=== PATIENT | female | born 1995 | race Caucasian/White ===

== ENCOUNTER → 2016-09-04 07:36 | Outpatient (CLI) | payer BC | LOC: D.MRI 07:36 | DX: K83.1 Obstruction of bile duct (principal) ==

== ENCOUNTER → 2020-01-05 16:09 | Outpatient (CLI) | payer OTHER ==
[2020-01-05 16:30] LABS: BASOPHILS 0.3 % (0-2); EOSINOPHILS 0.9 % (0-7); HEMATOCRIT 38.7 % (36.0-48.0); HEMOGLOBIN 13.3 g/dL (12-16); IMMATURE GRANULOCYTES 0.1 % (0-5); MCH 31.1 pg (26.0-34.0); MCHC 34.4 g/dL (31.0-37.0); MCV 90.4 fL (80.0-100.0); MEAN PLATELET VOLUME 9.3 fL (7.4-10.4); MONOCYTES 4.3 % (2-11); NEUTROPHILS 48.4 % (40-80); PLATELET COUNT 280 10x3/uL (130-400); RBC 4.28 10x6/uL (4.00-5.40); RDW 12.2 % (11.5-14.5); WBC 6.7 10x3/uL (4.8-10.8)
[2020-01-05 16:53] LABS: ALBUMIN 3.7 g/dL (3.4-5.0); ALKALINE PHOSPHATASE 171 U/L (30-120); ALT (SGPT) 51 U/L (10-68); BILIRUBIN - DIRECT 0.14 mg/dL (0.00-0.30); BILIRUBIN - INDIRECT 0.19 mg/dL (0.00-1.00); BILIRUBIN - TOTAL 0.33 mg/dL (0.2-1.3); CALC OSMOLALITY 271 mosm/kg (275-300); CHLORIDE - SERUM 104 mmol/L (98-107); CREATININE - SERUM 0.7 mg/dL (0.6-1.3); GLUCOSE 85 mg/dL (74-106); POTASSIUM - SERUM 4.1 mmol/L (3.5-5.1); PROTEIN - SERUM 7.6 g/dL (6.4-8.2); SODIUM 137 mmol/L (136-145); UREA NITROGEN 10 mg/dL (7-18); eGFR NON AFRICAN AMERICAN > 90 mL/min (90-120)
== END | disposition home or self-care (01) ==
LOC: D.LAB 16:09
PROVIDERS: ATTEND Internal Medicine Gastroenterology
DX: Z87.828 Personal history of other (healed) physical injury and trauma (principal)

== ENCOUNTER → 2020-01-13 07:22 | Outpatient (CLI) | payer OTHER | END | disposition home or self-care (01) | LOC: D.MRI 07:22 | PROVIDERS: ATTEND Internal Medicine Gastroenterology | DX: S36.13XA Injury of bile duct, initial encounter (principal) ==

== ENCOUNTER → 2020-09-06 08:13 | Outpatient (CLI) | payer OTHER ==
[2020-09-07 10:12] LABS: HEPATITIS C ANTIBODY <0.1 S/CO RAT (0.0-0.9)
== END | disposition home or self-care (01) ==
LOC: D.US 08:13
PROVIDERS: ATTEND Internal Medicine Gastroenterology
DX: R74.01 Elevation of levels of liver transaminase levels (principal)